=== PATIENT | female | born 1970 | race Two or more races ===

== ENCOUNTER → 2024-10-19 | Outpatient (CLI) | payer OTHER, SELFPAY ==
--- NOTE | 2024-10-19 15:06 | XR_ITS ---
Examination: Wrist, right 3 views Technique: Wrist AP, oblique, lateral 3 views Date and time of exam: October 19, 2024 1516 hours INDICATIONS: Twisting injury to the wrist today, wrist pain. FINDINGS: Orthopedic screw distal ulna No acute fracture No wrist dislocation IMPRESSION: No acute fracture
== END | disposition home or self-care (01) ==
LOC: CDIM 14:44
PROVIDERS: PCP Internal Medicine; Referring Provider Family Medicine; Visit Provider Family Medicine
DX: S66.811A Strain of other specified muscles, fascia and tendons at wrist and hand level, right hand, initial encounter (principal); X50.1XXA Overexertion from prolonged static or awkward postures, initial encounter
CPT/HCPCS: 73110